=== PATIENT | female | born 1965 | race African-American/Black ===

== ENCOUNTER 2018-05-10 10:32 | Emergency (ER) | payer OTHER ==
[2018-05-10] MEDS ORDERED: Al Hydrox/Mg Hydrox/Simet LIQ* 30 ML UDC PO ONE (12:58)
--- NOTE | 2018-05-10 12:58 | ED ---
HPI Chest Pain - HPI Summary HPI Summary: This pt is a 53 y/o female, accompanied by son, presenting to [facility] via EMS for sudden onset of lower chest/upper abd pain today s/p taking antibiotic medication (Clindamycin) at the dentist. Pt reports she was at her dentist's office for dental pain and she was given an antibiotic pill to take, Clindamycin. She states 10 minutes after she took the antibiotic she had sudden onset of sharp, burning pain in her lower chest/upper abd area. She notes she was diaphoretic, with SOB, and vomiting. Pt states after emesis, pain markedly improved but still discomfort. PT was given ASA and NTG by EMS without change in symptoms. Pt reports her pain is worse with deep breaths, but is not SOB.no current nausea, vomiting. No cough. . . Additionally reports cough that is nonproductive. EMS administered nitroglycerin and aspirin [employer]. Pt denies SOB now , nausea, vomiting now, diarrhea. Denies sick contacts at home. PMHx: cardiac stent placed in [facility] (April 21, 2018), DM. Pt has not taken her Insulin today. Patient medication reviewed this visit. - History of Current Complaint Chief Complaint: EDAbdPain Time Seen by Provider: 05/10/18 12:34 Hx Obtained From: Patient Onset/Duration: Started Hours Ago, Still Present Timing: Lasting Hours Current Severity: Moderate Pain Intensity: 7 Pain Scale Used: 0-10 Numeric Chest Pain Location: Lower Sternal Chest Pain Radiates: No Aggravating Factor(s): Deep Breaths Alleviating Factor(s): Nothing Associated Signs and Symptoms: Positive: Chest Pain, Shortness of Breath, Diaphoresis, Nausea, Cough, Vomiting - Allergy/Home Medications Allergies/Adverse Reactions: Allergies Allergy/AdvReac Type Severity Reaction Status Date / Time No Known Allergies Allergy Verified 12/23/16 21:21 Home Medications: Home Medications Albuterol HFA INHALER* [Ventolin HFA Inhaler*] 1 - 2 puff INH .Q4-6H PRN [History Confirmed 05/10/18] Albuterol/Ipratropium RESP(NF) [Combivent Respimat(NF)] 1 puff INH QID 05/10/18 [History Confirmed 05/10/18] Aspirin 81 mg CHEW TAB* [Aspirin Low Dose TAB*] 81 mg PO DAILY 05/10/18 [ History Confirmed 05/10/18] Atorvastatin* [Lipitor*] 80 mg PO DAILY WITH MEAL 05/10/18 [History Confirmed ] Chlorthalidone 12.5 mg PO DAILY 05/10/18 [History Confirmed 05/10/18] Clopidogrel TAB* [Plavix TAB*] 75 mg PO DAILY 05/10/18 [History Confirmed ] Cyclobenzaprine (NF) [Cyclobenzaprine 5 MG (NF)] 5 mg PO TID PRN 05/10/18 [ History Confirmed 05/10/18] DULoxetine DR CAP* [Cymbalta CAP*] 120 mg PO DAILY 05/10/18 [History Confirmed 05/10/18] Gabapentin CAP(*) [Neurontin 400 mg CAP(*)] 400 mg PO TID 05/10/18 [History Confirmed 05/10/18] Insulin Glargine,Hum.rec.anlog [Jose Pierre] 12 units SUBCUT BEDTIME [History Confirmed 05/10/18] Lisinopril 40 mg PO DAILY 05/10/18 [History Confirmed 05/10/18] Metoprolol Tartrate TAB* [Lopressor TAB*] 100 mg PO BID 05/10/18 [History Confirmed 05/10/18] Nitroglycerin TAB 0.4 MG* 0.4 mg SL Q5M PRN 05/10/18 [History Confirmed 05/10/18 ] Pantoprazole TAB * [Protonix TAB*] 40 mg PO DAILY 05/10/18 [History Confirmed ] Quetiapine Fumarate [Seroquel 400 MG] 800 mg PO QPM 05/10/18 [History Confirmed 05/10/18] SitaGLIPtin (NF) [Januvia (NF)] 100 mg PO DAILY 05/10/18 [History Confirmed ] amLODIPine TAB* [Norvasc 5 mg TAB*] 5 mg PO DAILY 05/10/18 [History Confirmed ] glipiZIDE TAB* [Glucotrol TAB*] 5 mg PO BID 05/10/18 [History Confirmed 05/10/18 ] hydrOXYzine HCL TAB* [Atarax 25 MG TAB*] 25 mg PO QAM 05/10/18 [History Confirmed 05/10/18] metroNIDAZOLE [Metrogel] 1 % TOPICAL DAILY 05/10/18 [History Confirmed 05/10/18] PMH/Surg Hx/FS Hx/Imm Hx Previously Healthy: Yes Endocrine/Hematology History: Reports: Hx Anticoagulant Therapy - + plavix, Hx Diabetes Denies: Hx Systemic Lupus Erythematosus, Hx Thyroid Disease Cardiovascular History: Reports: Hx Angina, Hx Hypercholesterolemia, Hx Hypertension Denies: Hx Congestive Heart Failure, Hx Pacemaker/ICD Comment Only: Other Cardiovascular Problems/Disorders - HIGH BLOOD PRESSURE Respiratory History: Denies: Hx Asthma, Hx Chronic Obstructive Pulmonary Disease (COPD) GI History: Denies: Other GI Disorders History: Denies: Hx Dialysis, Hx Renal Disease Musculoskeletal History: Reports: Hx Arthritis, Hx Back Problems, Hx Fibromyalgia, Other Musculoskeletal History - fibromyalgia, arthritis Denies: Hx Rheumatoid Arthritis Sensory History: Reports: Hx Contacts or Glasses Opthamlomology History: Reports: Hx Contacts or Glasses Neurological History: Reports: Hx Seizures, Other Neuro Impairments/Disorders - seizures, depression Denies: Hx Dementia Psychiatric History: Reports: Hx Anxiety, Hx Depression, Hx Community Mental Health Tx Denies: Hx Attention Deficit Hyperactivity Disorder, Hx Eating Disorder, Hx Bipolar Disorder, Hx of Violent Episodes Against Others, Hx Substance Abuse - Cancer History Hx Chemotherapy: No - Surgical History Surgery Procedure, Year, and Place: APPY. GALLBLADDER. ?IUD. Stent placed (03/11) Hx Anesthesia Reactions: No Infectious Disease History: No Infectious Disease History: Denies: Hx Hepatitis, Hx Human Immunodeficiency Virus (HIV), Traveled Outside the [place] in Last 30 Days - Family History Known Family History: Positive: Cardiac Disease, Diabetes Family History: strokes - Social History Occupation: Unemployed Lives: With Family Alcohol Use: None Hx Substance Use: Yes Substance Use Type: Reports: Marijuana Hx Tobacco Use: Yes Smoking Status (MU): Current Every Day Smoker Type: eCigarettes Have You Smoked in the Last Year: Yes Review of Systems Constitutional: Negative Positive: Skin Diaphoresis - resolved with vomiting. Negative: Fever Positive: Dental Pain Positive: Chest Pain Positive: Shortness Of Breath - has resolved, Cough Positive: Vomiting, Nausea. Negative: Diarrhea All Other Systems Reviewed And Are Negative: Yes Physical Exam - Summary Physical Exam Summary: Vital Signs Reviewed: Yes A+Ox3, no distress Eyes: Conjunctiva Clear, CLAUDIO. EOM intact and full ENT: Hearing grossly normal TM x 2 clear, mmoist, uvula midline, no exudate, no erythema Neck: Positive: Supple Respiratory: Positive: No respiratory distress, No accessory muscle use + CTA throughout no w/r. no cough, speaking full easy sentences Cardiovascular: RRR nl s1, s2 no m/r CBT <2 sec no bruits. no edema abd soft + TTP epigastric area, no guarding, no rebound soft + BS Musculoskeletal Exam: GRANADOS x 4 without difficulty Strength Intact, ROM Intact Neurological: Positive: Alert, + sensation throughout Psychological: Positive: Normal Response To Family Skin: Positive: no rash, no ecchymosis Vital Signs On Initial Exam: Initial Vitals Temp Pulse Resp BP Pulse Ox 98.0 F 77 18 127/82 98 05/10/18 10:37 05/10/18 10:37 05/10/18 10:37 05/10/18 10:37 05/10/18 10:37 Diagnostics - Vital Signs Vital Signs Temp Pulse Resp BP Pulse Ox 05/10/18 12:09 19 134/90 05/10/18 12:00 22 05/10/18 11:39 23 120/83 05/10/18 11:09 25 140/85 05/10/18 11:00 25 05/10/18 10:39 75 14 127/82 100 05/10/18 10:38 79 100 05/10/18 10:37 98.0 F 77 18 127/82 98 - Laboratory Result Diagrams: 05/10/18 12:23 05/10/18 13:05 Lab Statement: Any lab studies that have been ordered have been reviewed, and results considered in the medical decision making process. - Radiology Chest XR Radiology Interpretation Completed By: Radiologist Summary of Radiographic Findings: IMPRESSION: No active cardiopulmonary disease. Dr. Barahona has reviewed this report. - CT CTA Chest CT Interpretation Completed By: Radiologist Summary of CT Findings: IMPRESSION: No pulmonary embolus is noted. No evidence of aortic dissection is noted. Dr. Barahona has reviewed this report. - EKG 12:39 Cardiac Rate: NL - at 77 bpm EKG Rhythm: Sinus Rhythm EKG Comparison: No Significant Change - No acute changes compard to prior on 2013. Re-Evaluation - Re-Evaluation First Eval Re-Evaluation Time: 13:58 Comment: Reviewed elevated D-dimer level with pt. Will order CTA. first trop 0 - will recheck 4 hour. Pt states mild improvement with Maalox - requesting narcotic - explained to pt narcotic not appropriate tx for likely gastric irritation. Will give APAP and bland po. Pt took her Protonix today Third Eval Re-Evaluation Time: 16:59 Comment: Second troponin is negative. CTA is negative. Discussed negative results with pt. Reviewed discharge plan with pt. Second Eval Re-Evaluation Time: 14:51 Comment: Ordered magnesium sulfate because it's low. Second troponin is pending. anticipate dicharge if neg - pt comfortable wiht plan. Chest Pain Course/Dx - Course Course Of Treatment: Pt presents to following epigastric lower chest pain starting 10 min after taking clindamycin at dental office. Pt states developed burning pain, sob, nausea. Pt with episode of vomiting which markedly improved sx. Pt states continues with epigastric discomfort. Pt was given nitro and ASA by EMS without improvement. Pt does have GERD - take protonix. No cough. VSS. EKG reviewed - no acute STEMI. Pain reproducible in epigastric area. heart and lung exam unremarkable. Will check labs including trop. D dimer. CXR. Maalox. tele. close reassessment - Diagnoses Provider Diagnoses: Epigastric abdominal pain - Provider Notifications Discussed Care Of Patient With: Dentist Instructed by Provider To: Other - Dentist office reports pt received Clindamycin. Discharge - Sign-Out/Discharge Documenting (check all that apply): Patient Departure - Discharge home Patient Received Moderate/Deep Sedation with Procedure: No - Discharge Plan Condition: Stable Disposition: HOME Patient Education Materials: Epigastric Pain (ED) Referrals: Orion Beck MD [Primary Care Provider] - Additional Instructions: - Stay well hydrated - drink plenty of non-alcoholic, non-caffinated beverages - Eat small, frequent meals - avoid spicy foods, acidic foods, fried foods, tomato based food - Okay to take Tums or Maalox burning pain - Continue to take Protonix as previous Contact your doctor to schedule a follow-up appointment - Billing Disposition and Condition Condition: STABLE Disposition: Home - Attestation Statements Document Initiated by Scribe: Yes Documenting Scribe: Tamela Martinez Provider For Whom Scribe is Documenting (Include Credential): Soledad Barahona MD Scribe Attestation: I, Tamela Martinez, scribed for Soledad Barahona MD on 05/12/18 at 205. Scribe Documentation Reviewed: Yes Provider Attestation: The documentation as recorded by the scribe, Tamela Martinez accurately reflects the service I personally performed and the decisions made by me, Soledad Barahona MD Status of Scribe Document: Viewed
[2018-05-10 13:47] LABS: CKMB ng/mL 0.9 ng/mL (0.6-6.3)
[2018-05-10] MEDS ORDERED: Acetaminophen TAB* 325 MG PO ONE (14:00)
[2018-05-10] MEDS ORDERED: Iodixanol* (CONTRAST) 320 MG/ML 100 ML SDV IV ONE (14:08)
[2018-05-10 14:13] LABS: ABS Basophils 0 10^3/ul (0-0.2); ABS Eosinophils 0.1 10^3/ul (0-0.6); ABS Lymphocytes 1.3 10^3/ul (1.0-4.8); ABS Monocytes 0.8 10^3/ul (0-0.8); ABS Neutrophils 7.8 10^3/ul (1.5-7.7); ABS Nucleated RBC 0 10^3/ul; Eosinophil % 1.3 %; Hematocrit 39 % (33-41); Hemoglobin 13.7 g/dL (12.0-16.0); Lymphocyte % 12.8 %; Mean Corpuscular HGB Conc 35 g/dL (31-36); Mean Corpuscular Hemoglobin 30 pg (27-31); Mean Corpuscular Volume 86 fL (80-97); Mean Platelet Volume 7.8 fL (7.4-10.4); Nucleated Red Blood Cells % 0; Platelet Count 340 10^3/uL (150-450); Red Cell Distribution Width 13 % (10.5-15)
[2018-05-10 14:25] LABS: Albumin 4.2 g/dL (3.2-5.2); Albumin/Globulin Ratio 1.6 (1-3); BUN/Creatinine Ratio 31.7 (8-20); Calcium 9.5 mg/dL (8.6-10.3); Globulin 2.7 g/dL (2-4); Magnesium 1.5 mg/dL (1.9-2.7); Total Bilirubin 0.3 mg/dL (0.2-1.0); Total Protein 6.9 g/dL (6.4-8.9)
[2018-05-10] MEDS ORDERED: Magnesium Sulfate 2 GM IV* 2 GM/50 ML BAG IVPB ONE (14:44)
[2018-05-10 16:24] VITALS: BP 119/58
== END 2018-05-10 16:23 | disposition home or self-care (01) ==
LOC: ED 10:32
DX: R10.13 Epigastric pain (principal); R06.02 Shortness of breath; R61 Generalized hyperhidrosis; R11.2 Nausea with vomiting, unspecified; R05 Cough; E11.9 Type 2 diabetes mellitus without complications; Z79.4 Long term (current) use of insulin; Z79.84 Long term (current) use of oral hypoglycemic drugs; Z79.01 Long term (current) use of anticoagulants; I10 Essential (primary) hypertension; Z90.89 Acquired absence of other organs; Z90.49 Acquired absence of other specified parts of digestive tract; Z82.49 Family history of ischemic heart disease and other diseases of the circulatory system; Z83.3 Family history of diabetes mellitus; F17.290 Nicotine dependence, other tobacco product, uncomplicated
CPT/HCPCS: 36415; 71046; 71275; 80053; 82553; 83605; 83690; 83735; 84484; 85025; 85379; 93005; 96365; 99284; A9270-GY; J3475; Q9967

== ENCOUNTER 2019-03-20 21:22 | Emergency (ER) | payer OTHER ==
--- NOTE | 2019-03-20 21:42 | ED ---
HPI Chest Pain - HPI Summary HPI Summary: Patient brought by EMS for sudden onset chest pain radiating to left shoulder with associated mild SOB. Nausea and vomiting 2. Patient has history of chronic chest pain radiating to left shoulder. History of cardiac stents April 2018. Patient takes nitroglycerin for chest pain, states she took 2 nitroglycerin this evening with no relief. States she has chronic chest pain radiating to left shoulder at night when she goes to bed, no symptoms during the day. Last check up with cardiology in October 2018. Patient on Plavix. Also complains of left shoulder pain persistent 1 week. Denies traumatic event. Denies fever, cough, sore throat, abdominal pain, change in urine, change in BM. Medical history is DM, HTN, HDL, CAD. - History of Current Complaint Chief Complaint: EDChestPainROMI Time Seen by Provider: 03/20/19 21:36 Hx Obtained From: Patient, Family/Social Service Manager Onset/Duration: Started Hours Ago Timing: Constant Initial Severity: Moderate Current Severity: Moderate Pain Intensity: 6 Pain Scale Used: 0-10 Numeric Chest Pain Location: Left Anterior Chest Pain Radiates: Yes Chest Pain Radiates To:: Shoulder Character: Tightness Aggravating Factor(s): Nothing Alleviating Factor(s): Nothing Associated Signs and Symptoms: Positive: Chest Pain, Shortness of Breath - Allergy/Home Medications Allergies/Adverse Reactions: Allergies Allergy/AdvReac Type Severity Reaction Status Date / Time No Known Allergies Allergy Verified 03/20/19 21:31 Home Medications: Home Medications metroNIDAZOLE [Noritate] 1 % TOPICAL BID PRN 03/20/19 [History Confirmed ] PMH/Surg Hx/FS Hx/Imm Hx Endocrine/Hematology History: Reports: Hx Anticoagulant Therapy - + plavix, Hx Diabetes Denies: Hx Systemic Lupus Erythematosus, Hx Thyroid Disease Cardiovascular History: Reports: Hx Angina, Hx Hypercholesterolemia, Hx Hypertension Denies: Hx Congestive Heart Failure, Hx Pacemaker/ICD Comment Only: Other Cardiovascular Problems/Disorders - HIGH BLOOD PRESSURE Respiratory History: Denies: Hx Asthma, Hx Chronic Obstructive Pulmonary Disease (COPD) GI History: Denies: Other GI Disorders History: Denies: Hx Dialysis, Hx Renal Disease Musculoskeletal History: Reports: Hx Arthritis, Hx Back Problems, Hx Fibromyalgia, Other Musculoskeletal History - fibromyalgia, arthritis Denies: Hx Rheumatoid Arthritis Sensory History: Reports: Hx Contacts or Glasses Opthamlomology History: Reports: Hx Contacts or Glasses EENT History: Denies: Hx Deafness Neurological History: Reports: Hx Seizures, Other Neuro Impairments/Disorders - seizures, depression Denies: Hx Dementia Psychiatric History: Reports: Hx Anxiety, Hx Depression, Hx Community Mental Health Tx Denies: Hx Attention Deficit Hyperactivity Disorder, Hx Eating Disorder, Hx Bipolar Disorder, Hx of Violent Episodes Against Others, Hx Substance Abuse - Cancer History Hx Chemotherapy: No - Surgical History Surgery Procedure, Year, and Place: APPY. GALLBLADDER. IUD. Stent placed (03/11) Hx Anesthesia Reactions: No Infectious Disease History: No Infectious Disease History: Denies: Hx Hepatitis, Hx Human Immunodeficiency Virus (HIV), Traveled Outside the [place] in Last 30 Days - Family History Known Family History: Positive: Cardiac Disease, Diabetes Family History: strokes - Social History Alcohol Use: None Hx Substance Use: Yes Substance Use Type: Reports: Marijuana Substance Use Comment - Amount & Last Used: last used this morning Hx Tobacco Use: Yes Smoking Status (MU): Light Every Day Tobacco Smoker Type: eCigarettes Have You Smoked in the Last Year: Yes Review of Systems Constitutional: Negative Eyes: Negative ENT: Negative Positive: Chest Pain Positive: Shortness Of Breath Gastrointestinal: Negative Genitourinary: Negative Musculoskeletal: Other Skin: Negative Neurological: Negative Psychological: Normal All Other Systems Reviewed And Are Negative: Yes Physical Exam - Summary Physical Exam Summary: Normal range of motion of left shoulder with some mild pain. No pain with palpation of left shoulder. Chest pain reproducible over left-sided chest. Lung sounds clear to auscultation bilaterally. RRR. Triage Information Reviewed: Yes Vital Signs On Initial Exam: Initial Vitals Temp Pulse Resp BP Pulse Ox 97.8 F 102 12 105/58 98 03/20/19 21:26 03/20/19 21:26 03/20/19 21:26 03/20/19 21:26 03/20/19 21:26 Vital Signs Reviewed: Yes Appearance: Positive: Well-Appearing Skin: Positive: Warm Head/Face: Positive: Normal Head/Face Inspection Eyes: Positive: Normal Neck: Positive: Supple Respiratory/Lung Sounds: Positive: Clear to Auscultation Cardiovascular: Positive: Normal Abdomen Description: Positive: Nontender Musculoskeletal: Positive: Normal Neurological: Positive: Normal Psychiatric: Positive: Normal AVPU Assessment: Alert - [place] Coma Scale Best Eye Response: 4 - Spontaneous Best Motor Response: 6 - Obeys Commands Best Verbal Response: 5 - Oriented Coma Scale Total: 15 Procedures - Sedation Patient Received Moderate/Deep Sedation with Procedure: No Diagnostics - Vital Signs Vital Signs Temp Pulse Resp BP Pulse Ox 03/20/19 21:32 97 29 97 03/20/19 21:29 101 20 105/58 98 03/20/19 21:26 97.8 F 102 12 105/58 98 - Laboratory Result Diagrams: 03/20/19 21:54 03/20/19 21:54 Lab Statement: Any lab studies that have been ordered have been reviewed, and results considered in the medical decision making process. Chest Pain Course/Dx - Course Course Of Treatment: Patient brought by EMS for sudden onset chest pain radiating to left shoulder with associated mild SOB. Nausea and vomiting 2. Patient has history of chronic chest pain radiating to left shoulder. History of cardiac stents April 2018. Patient takes nitroglycerin for chest pain, states she took 2 nitroglycerin this evening with no relief. States she has chronic chest pain radiating to left shoulder at night when she goes to bed, no symptoms during the day. Last check up with cardiology in October 2018. Patient on Plavix. Also complains of left shoulder pain persistent 1 week. Denies traumatic event. Denies fever, cough, sore throat, abdominal pain, change in urine, change in BM. Medical history is DM, HTN, HDL, CAD. Mildly tachycardic. Vital signs otherwise within normal limits. Potassium 3.2. Potassium 40 MEQ by mouth administered. Labs otherwise unremarkable. Serial troponins negative. EKG sinus tachycardia with heart rate of 101, same as prior. X-ray of left shoulder negative. Chest x-ray negative. Left shoulder and chest pain resolved with oxycodone 5 mg. Heart score 3. - Diagnoses Provider Diagnoses: Chest pain, Left shoulder pain Discharge ED - Sign-Out/Discharge Documenting (check all that apply): Patient Departure - Discharge Plan Condition: Stable Disposition: HOME Patient Education Materials: Chest Pain (ED), Shoulder Pain (ED) Referrals: Orion Beck MD [Primary Care Provider] - Additional Instructions: Follow-up with your remedial reading teacher in [place] for recurrent chronic chest pain. Follow-up with orthopedics Dr. Marsh for further evaluation of left shoulder pain. Take Tylenol for chest pain and left shoulder pain. Return to the ED for any new or worsening symptoms. - Billing Disposition and Condition Condition: STABLE Disposition: Home
[2019-03-20 22:07] LABS: ABS Basophils 0.1 10^3/ul (0-0.2); ABS Eosinophils 0.2 10^3/ul (0-0.6); ABS Lymphocytes 1.5 10^3/ul (1.0-4.8); ABS Monocytes 0.6 10^3/ul (0-0.8); ABS Neutrophils 3.7 10^3/ul (1.5-7.7); Eosinophil % 2.8 %; Hematocrit 32 % (35-47); Hemoglobin 11.7 g/dL (12.0-16.0); Lymphocyte % 24.3 %; Mean Corpuscular HGB Conc 36 g/dL (31-36); Mean Corpuscular Hemoglobin 31 pg (27-31); Mean Corpuscular Volume 86 fL (80-97); Mean Platelet Volume 7.8 fL (7.4-10.4); Platelet Count 291 10^3/uL (150-450); Red Blood Count 3.77 10^6 /uL (3.70-4.87); Red Cell Distribution Width 14 % (10-15)
[2019-03-20 22:18] LABS: Albumin 3.6 g/dL (3.2-5.2); Albumin/Globulin Ratio 1.5 (1-3); BUN/Creatinine Ratio 19.5 (8-20); C Reactive Protein 6.1 mg/L (<8.01); Calcium 8.5 mg/dL (8.6-10.3); EGFR African American 88.6 (>60); EGFR Non-African American 73.2 (>60); Globulin 2.4 g/dL (2-4); Potassium 3.2 mmol/L (3.5-5.0); Total Bilirubin 0.2 mg/dL (0.2-1.0)
[2019-03-20 22:20] LABS: Troponin I 0.01 ng/mL (<0.03)
[2019-03-20] MEDS ORDERED: oxyCODONE TAB* 5 MG TAB PO ONE (22:22)
[2019-03-20] MEDS ORDERED: Potassium Chlor TAB* 20 MEQ TAB.ER PO ONE (22:22)
[2019-03-20 22:57] LABS: TSH (Thyroid Stimulating Horm) 4.97 mcIU/mL (0.34-5.60)
[2019-03-21 01:38] VITALS: BP 120/74
== END 2019-03-21 01:38 | disposition home or self-care (01) ==
LOC: ED 21:22
DX: R07.9 Chest pain, unspecified (principal); M25.512 Pain in left shoulder; F17.210 Nicotine dependence, cigarettes, uncomplicated; F41.9 Anxiety disorder, unspecified; F32.9 Major depressive disorder, single episode, unspecified; I10 Essential (primary) hypertension; E11.9 Type 2 diabetes mellitus without complications; E78.00 Pure hypercholesterolemia, unspecified; Z79.01 Long term (current) use of anticoagulants; Z79.899 Other long term (current) drug therapy
CPT/HCPCS: 36415; 71045; 80053; 83690; 83880; 84443; 84484; 85025; 86140; 93005; 99284; A9270-GY

== ENCOUNTER 2021-02-27 04:02 | Observation (INO) ==
[2021-02-27 04:24] LABS: ABS Basophils 0.1 10^3/ul (0-0.2); ABS Eosinophils 0.2 10^3/ul (0-0.6); ABS Lymphocytes 1.8 10^3/ul (1.0-4.8); ABS Monocytes 0.6 10^3/ul (0-0.8); ABS Neutrophils 3.3 10^3/ul (1.5-7.7); Eosinophil % 2.7 %; Hematocrit 35 % (35-47); Hemoglobin 11.9 g/dL (12.0-16.0); Lymphocyte % 30.3 %; Mean Corpuscular HGB Conc 34 g/dL (31-36); Mean Corpuscular Hemoglobin 29 pg (27-31); Mean Corpuscular Volume 85 fL (80-97); Mean Platelet Volume 7.1 fL (7.4-10.4); Nucleated Red Blood Cells % 0.2; Platelet Count 363 10^3/uL (150-450); Red Blood Count 4.14 10^6 /uL (3.70-4.87); Red Cell Distribution Width 15 % (10-15); White Blood Count 5.8 10^3/uL (3.5-10.8)
[2021-02-27 04:38] LABS: Activated Partial Thrombo Time 32.5 seconds (26.0-38.0); INR 1.02 (0.86-1.15)
[2021-02-27 04:43] LABS: Albumin 4.2 g/dL (3.2-5.2); Albumin/Globulin Ratio 1.6 (1-3); Calcium 9.3 mg/dL (8.6-10.3); Globulin 2.6 g/dL (2-4); Magnesium 1.9 mg/dL (1.9-2.7); Potassium 3.6 mmol/L (3.5-5.0); Total Bilirubin 0.3 mg/dL (0.2-1.0); Total Protein 6.8 g/dL (6.4-8.9); eGFR CKD-EPI 88.8 (>60)
[2021-02-27 05:08] LABS: TSH Ultra Thyroid Stim Horm 4.94 mcIU/mL (0.34-5.60)
[2021-02-27] MEDS ORDERED: Iodixanol (CONTRAST) 320 MG/ML 100 ML SDV IV ONE (06:32)
[2021-02-27] MEDS ORDERED: NS 0.9% 1000 ml BAG 1,000 ML IV ONE (08:10)
[2021-02-27] MEDS ORDERED: Nitroglycerin 0.4 mg/hr PATCH (10 mg) TRANSDERM ONE (08:16)
[2021-02-27] MEDS ORDERED: Dextrose 50% Syringe 50 ml 25 GM/50 ML SYRINGE IV PUSH PRN (08:42)
[2021-02-27] MEDS ORDERED: Ondansetron 4 mg VIAL 2 MG/ML 2 ml VIAL IV PRN (08:43)
[2021-02-27] MEDS ORDERED: Insulin GLARGINE 100 un/ml 10 ml VIAL SUBCUT SCH (09:00)
[2021-02-27] MEDS ORDERED: DULoxetine DR 60 mg CAP PO SCH (10:00)
[2021-02-27] MEDS ORDERED: Regadenoson 0.4 MG/5 ML SYRINGE ONE (12:14)
[2021-02-27] MEDS ORDERED: Aminophylline 25 MG/ML VIAL ONE (12:18)
[2021-02-27 16:45] VITALS: BP 134/90
[2021-02-27] MEDS ORDERED: Nitro Patch Removal Reminder PATCH OFF ONE (21:00)
[2021-02-28] MEDS ORDERED: Aspirin EC 81 mg TAB.EC (enteric coated) PO SCH (09:00)
[2021-02-28] MEDS ORDERED: Cholecalciferol (VIT D3) 1,000 unit TAB PO SCH (09:00)
[2021-02-28] MEDS ORDERED: [UNRECOGNIZED DRUG - OTHER] PO SCH (09:00)
== END 2021-02-27 16:44 | disposition home or self-care (01) ==
LOC: EDHOLD 04:02 → ED 04:02 → EDHOLD 16:44
PROVIDERS: ADMIT Internal Medicine; ATTEND Internal Medicine

== ENCOUNTER 2023-10-22 17:05 | Inpatient (IN) ==
[2023-10-22] MEDS: Acetaminophen IV 1 GM/100ML 1,000 MG/100 ML BAG IV ONE (21:42)
[2023-10-22] MEDS: Dexamethasone IV 4 MG/ML VIAL 1 ml VIAL IV SLOW PU ONE (21:42)
[2023-10-22 21:58] LABS: ABS Basophils 0.1 10^3/uL (0.0-0.1); ABS Eosinophils 0.1 10^3/uL (0.0-0.5); ABS Lymphocytes 2.8 10^3/uL (1.0-4.8); ABS Monocytes 0.7 10^3/uL (0.0-0.9); ABS Neutrophils 3.5 10^3/uL (1.5-7.6); Hematocrit 39.6 % (35-45); Mean Corpuscular Hemoglobin 30.7 pg (27-33); Mean Corpuscular Hgb Conc 35.3 g/dL (31-36); Mean Corpuscular Volume 87.1 fL (80-97); Mean Platelet Volume 7.6 fL (7.5-11.2); Platelet Count 399 10^3/uL (150-450); Red Blood Count 4.55 10^6/uL (3.63-4.92); Red Cell Distribution Width 12.8 % (12-17); White Blood Count 7.1 10^3/uL (3.8-11.8)
[2023-10-22 22:36] LABS: Calcium 10.3 mg/dL (8.6-10.3); Creatinine, Serum 0.88 mg/dL (0.51-0.95); eGFR CKD-EPI 76.6 (>60)
[2023-10-22] MEDS: Lidocaine PATCH 5% PATCH TRANSDERM ONE (23:03)
[2023-10-23] MEDS: Morphine 4 MG/ML VIAL (1 ml) IV ONE (01:23)
[2023-10-23] MEDS: HYDROmorphone 1 MG/1 ML SYRINGE IV ONE (03:29)
[2023-10-23] MEDS ORDERED: Nicotine GUM 4MG FRUIT FLAVOR PO PRN (05:16)
[2023-10-23] MEDS: HYDROmorphone 1 MG/1 ML SYRINGE IV SLOW PU PRN (07:42)
[2023-10-23] MEDS: Insulin GLARGINE 100 un/ml 10 ml VIAL SUBCUT SCH (08:49)
[2023-10-23] MEDS: Aspirin EC 81 mg TAB.EC (enteric coated) PO SCH (08:53)
[2023-10-23] MEDS: Lactated Ringers 1000 ml BAG 1,000 ML IV ONE (08:53)
[2023-10-23] MEDS: Nicotine PATCH 21 MG/24 HR PATCH TRANSDERM SCH (10:56)
[2023-10-23] MEDS: DULoxetine DR 60 mg CAP PO SCH (10:56)
[2023-10-23 11:14] LABS: Calcium 9.7 mg/dL (8.6-10.3); Creatinine, Serum 0.77 mg/dL (0.51-0.95); Potassium 4.5 mmol/L (3.5-5.0); eGFR CKD-EPI 89.9 (>60)
[2023-10-23] MEDS: Acetaminophen IV 1 GM/100ML 1,000 MG/100 ML BAG IV SCH (11:43)
[2023-10-23] MEDS: NS 0.9% 1000 ml BAG 1,000 ML IV SCH (11:46)
[2023-10-23 17:12] LABS: Albumin 4.2 g/dL (3.2-5.2); Albumin/Globulin Ratio 1.6 (1-3); Calcium 9.8 mg/dL (8.6-10.3); Creatinine, Serum 0.75 mg/dL (0.51-0.95); Globulin 2.6 g/dL (2-4); Potassium 4.4 mmol/L (3.5-5.0); Total Bilirubin 0.4 mg/dL (0.2-1.0); Total Protein 6.8 g/dL (6.4-8.9); eGFR CKD-EPI 92.8 (>60)
[2023-10-23] MEDS ORDERED: Nicotine Lozenge mini 2 MG LOZNG.MINI MT PRN (20:31)
[2023-10-24 05:58] LABS: ABS Eosinophils 0.2 10^3/uL (0.0-0.5); ABS Lymphocytes 2.7 10^3/uL (1.0-4.8); ABS Monocytes 0.5 10^3/uL (0.0-0.9); ABS Neutrophils 2.4 10^3/uL (1.5-7.6); Eosinophil % 3.4 %; Hematocrit 36.1 % (35-45); Hemoglobin 12.3 g/dL (11.5-14.3); Lymphocyte % 46.2 %; Mean Corpuscular Hemoglobin 29.8 pg (27-33); Mean Corpuscular Hgb Conc 33.9 g/dL (31-36); Mean Corpuscular Volume 87.8 fL (80-97); Mean Platelet Volume 7.7 fL (7.5-11.2); Platelet Count 345 10^3/uL (150-450); Red Blood Count 4.12 10^6/uL (3.63-4.92); White Blood Count 5.8 10^3/uL (3.8-11.8)
[2023-10-24 06:16] LABS: Albumin 3.7 g/dL (3.2-5.2); Albumin/Globulin Ratio 1.5 (1-3); Calcium 9.1 mg/dL (8.6-10.3); Creatinine, Serum 0.89 mg/dL (0.51-0.95); Globulin 2.5 g/dL (2-4); Potassium 3.9 mmol/L (3.5-5.0); Total Bilirubin 0.3 mg/dL (0.2-1.0); Total Protein 6.2 g/dL (6.4-8.9); eGFR CKD-EPI 75.6 (>60)
[2023-10-24] MEDS: Lidocaine PATCH 5% PATCH TRANSDERM SCH (08:19)
[2023-10-24 08:40] LABS: Magnesium 1.7 mg/dL (1.9-2.7)
[2023-10-24] MEDS: Insulin GLARGINE 100 un/ml 10 ml VIAL SUBCUT SCH (08:41)
[2023-10-24] MEDS: Magnesium Sulfate 2 gm BAG 2 GM/50 ML BAG IVPB ONE (10:17)
[2023-10-24] MEDS ORDERED: Dextrose 50% Syringe 50 ml 25 GM/50 ML SYRINGE IV PUSH PRN (16:28)
[2023-10-25 09:16] LABS: Calcium 9.3 mg/dL (8.6-10.3); Creatinine, Serum 0.62 mg/dL (0.51-0.95); Magnesium 1.7 mg/dL (1.9-2.7); eGFR CKD-EPI 103.8 (>60)
[2023-10-25] MEDS: Magnesium Sulfate 2 gm BAG 2 GM/50 ML BAG IVPB ONE (17:38)
[2023-10-25] MEDS: Senna TAB 8.6 mg TAB PO SCH (21:07)
[2023-10-26] MEDS ORDERED: Calcium Carb (TUMS) 500 mg CHEW TAB PO PRN (04:02)
[2023-10-26] MEDS: Magnesium Hydroxide LIQ 30 ML UDC PO PRN (09:25)
[2023-10-26] MEDS: Polyethylene Glycol 3350 17 GM PACKET PO PRN (12:36)
[2023-10-26] MEDS: Enoxaparin 40 MG/0.4 ML SYR SUBCUT SCH (14:13)
[2023-10-27 20:59] LABS: High Sensitivity Troponin 1 Hr 6 pg/mL (<15)
[2023-10-27] MEDS: Senna TAB 8.6 mg TAB PO PRN (23:48)
[2023-10-28 07:37] LABS: Calcium 9.4 mg/dL (8.6-10.3); Creatinine, Serum 1.08 mg/dL (0.51-0.95); Magnesium 2.1 mg/dL (1.9-2.7); Potassium 4.3 mmol/L (3.5-5.0); eGFR CKD-EPI 59.9 (>60)
[2023-10-28] MEDS: Morphine 2 MG/ML SYRINGE IV PRN ×2 (07:54→21:56)
[2023-10-29] MEDS: Glycerin ADULT 2.4 gm SUPP PR ONE (15:56)
[2023-10-30] MEDS: Sodium Phosphate ADULT ENEMA 133 ML BTL PR ONE ×2 (00:41→11:22)
[2023-10-30] MEDS: Ondansetron 4 mg VIAL 2 MG/ML 2 ml VIAL IV PRN (08:08)
[2023-10-30] MEDS: Magnesium Hydroxide LIQ 30 ML UDC PO SCH (09:15)
[2023-10-30] MEDS: Polyethylene Glycol 3350 17 GM PACKET PO SCH (09:15)
[2023-10-30] MEDS: Sodium Phosphate ADULT ENEMA 133 ML BTL PR PRN (09:17)
[2023-10-30 10:13] VITALS: BP 109/68
== END 2023-10-30 13:50 | disposition home or self-care (01) | DRG 99 ==
LOC: EDHOLD 17:05 → ED 17:05 → SSU 10-23 08:41 → SUATTDRO 10-25 16:30 → MED 10-27 23:08
PROVIDERS: ADMIT Hospitalist; ATTEND Student in an Organized Health Care Education/Training Program

== ENCOUNTER 2024-03-01 01:11 | Observation (INO) ==
[2024-03-01 01:36] LABS: ABS Eosinophils 0.2 10^3/uL (0.0-0.5); ABS Lymphocytes 1.7 10^3/uL (1.0-4.8); ABS Monocytes 0.5 10^3/uL (0.0-0.9); ABS Neutrophils 2.6 10^3/uL (1.5-7.6); Eosinophil % 4.3 %; Hematocrit 38.3 % (35-45); Hemoglobin 13.3 g/dL (11.5-14.3); Lymphocyte % 34.5 %; Mean Corpuscular Hemoglobin 29.1 pg (27-33); Mean Corpuscular Hgb Conc 34.8 g/dL (31-36); Mean Corpuscular Volume 83.6 fL (80-97); Mean Platelet Volume 7.8 fL (7.5-11.2); Nucleated Red Blood Cells % 0.1 %/100WBC (0.0-0.8); Platelet Count 311 10^3/uL (150-450); Red Blood Count 4.58 10^6/uL (3.63-4.92); Red Cell Distribution Width 13.5 % (12-17)
[2024-03-01 01:39] LABS: INR 1.14 (0.85-1.14)
[2024-03-01 02:49] LABS: Albumin 4.2 g/dL (3.5-5.7); Albumin/Globulin Ratio 1.7 (1-3); Calcium 9.5 mg/dL (8.6-10.3); Creatinine, Serum 0.85 mg/dL (0.51-0.95); Globulin 2.5 g/dL (2-4); Potassium 3.8 mmol/L (3.5-5.0); Total Bilirubin 0.4 mg/dL (0.2-1.0); Total Protein 6.7 g/dL (6.4-8.9); eGFR CKD-EPI 79.9 (>60)
[2024-03-01 03:03] LABS: High Sensitivity Troponin 1 Hr 28 pg/mL (<15)
[2024-03-01] MEDS: Heparin DRIP 25,000 UNITS BAG 25,000 UNITS/250 ML BAG IV SCH (03:35)
[2024-03-01] MEDS: Heparin 5000 UNITS/ML 1 mL VIAL IV SCH (03:35)
[2024-03-01 06:26] LABS: ABS Basophils 0.1 10^3/uL (0.0-0.1); ABS Eosinophils 0.2 10^3/uL (0.0-0.5); ABS Lymphocytes 2.2 10^3/uL (1.0-4.8); ABS Monocytes 0.6 10^3/uL (0.0-0.9); ABS Neutrophils 2.9 10^3/uL (1.5-7.6); ABS Nucleated RBC 0.01 10^3/ul; Eosinophil % 3.7 %; Hematocrit 37.1 % (35-45); Hemoglobin 12.9 g/dL (11.5-14.3); Lymphocyte % 36.8 %; Mean Corpuscular Hemoglobin 29.2 pg (27-33); Mean Corpuscular Hgb Conc 34.9 g/dL (31-36); Mean Corpuscular Volume 83.8 fL (80-97); Mean Platelet Volume 7.4 fL (7.5-11.2); Nucleated Red Blood Cells % 0.1 %/100WBC (0.0-0.8); Platelet Count 306 10^3/uL (150-450); Red Blood Count 4.43 10^6/uL (3.63-4.92); Red Cell Distribution Width 13.3 % (12-17)
[2024-03-01] MEDS ORDERED: Sulfur Hexaflouride MICROSPHR 25 MG VIAL IV PRN (06:38)
[2024-03-01] MEDS ORDERED: Dextrose 50% Syringe 50 ml 25 GM/50 ML SYRINGE IV PUSH PRN (06:41)
[2024-03-01 07:49] LABS: Calcium 9.6 mg/dL (8.6-10.3); Magnesium 1.9 mg/dL (1.9-2.7); Potassium 4.4 mmol/L (3.5-5.0); eGFR CKD-EPI 65.7 (>60)
[2024-03-01] MEDS: Morphine ER 15 mg TAB ** extended release PO SCH (08:30)
[2024-03-01] MEDS: Insulin GLARGINE 100 un/ml 10 ml VIAL SUBCUT SCH (08:36)
[2024-03-01] MEDS: DULoxetine DR 60 mg CAP PO SCH (10:02)
[2024-03-01] MEDS ORDERED: Naloxone Nasal Spray 4 MG/0.1 ML NASAL.SPR INTRANASAL PRN (10:33)
[2024-03-01 10:47] LABS: High Sensitivity Troponin 1 Hr 62 pg/mL (<15)
[2024-03-01 11:04] LABS: HDL Cholesterol 33.4 mg/dL
[2024-03-01] MEDS: Insulin GLARGINE 100 un/ml 10 ml VIAL SUBCUT ONE (12:32)
[2024-03-02 05:29] LABS: ABS Basophils 0.1 10^3/uL (0.0-0.1); ABS Eosinophils 0.3 10^3/uL (0.0-0.5); ABS Lymphocytes 2.4 10^3/uL (1.0-4.8); ABS Monocytes 0.6 10^3/uL (0.0-0.9); Eosinophil % 6.1 %; Hematocrit 37.7 % (35-45); Hemoglobin 13.2 g/dL (11.5-14.3); Mean Corpuscular Hemoglobin 29.4 pg (27-33); Mean Corpuscular Hgb Conc 35.1 g/dL (31-36); Mean Corpuscular Volume 83.8 fL (80-97); Mean Platelet Volume 7.8 fL (7.5-11.2); Platelet Count 340 10^3/uL (150-450); Red Cell Distribution Width 13.7 % (12-17); White Blood Count 5.5 10^3/uL (3.8-11.8)
[2024-03-02 05:58] LABS: Albumin 4.1 g/dL (3.5-5.7); Albumin/Globulin Ratio 1.8 (1-3); Calcium 9.7 mg/dL (8.6-10.3); Creatinine, Serum 1.03 mg/dL (0.51-0.95); Globulin 2.3 g/dL (2-4); Magnesium 1.8 mg/dL (1.9-2.7); Potassium 5.1 mmol/L (3.5-5.0); Total Bilirubin 0.3 mg/dL (0.2-1.0); Total Protein 6.4 g/dL (6.4-8.9); eGFR CKD-EPI 63.4 (>60)
[2024-03-02] MEDS: Magnesium Sulfate IV 1GM/100ML 1 GM/100 ML BAG IV ONE (11:22)
[2024-03-02] MEDS ORDERED: Aminophylline 25 MG/ML VIAL ONE (13:34)
[2024-03-02] MEDS ORDERED: Regadenoson 0.4 MG/5 ML SYRINGE ONE (13:34)
[2024-03-02] MEDS: Morphine ER 15 mg TAB ** extended release PO SCH (21:29)
[2024-03-02] MEDS: CMC:Ranolazine 500 mg TAB ER (NF) PO SCH (21:29)
[2024-03-02] MEDS: Senna TAB 8.6 mg TAB PO PRN (23:03)
[2024-03-03] MEDS: Calcium Carb (TUMS) 500 mg CHEW TAB PO ONE (03:11)
[2024-03-03 05:56] LABS: ABS Eosinophils 0.4 10^3/uL (0.0-0.5); ABS Lymphocytes 2.4 10^3/uL (1.0-4.8); ABS Monocytes 0.7 10^3/uL (0.0-0.9); ABS Neutrophils 2.1 10^3/uL (1.5-7.6); ABS Nucleated RBC 0.01 10^3/ul; Eosinophil % 6.4 %; Hematocrit 37.4 % (35-45); Lymphocyte % 42.5 %; Mean Corpuscular Hemoglobin 29.1 pg (27-33); Mean Corpuscular Hgb Conc 34.8 g/dL (31-36); Mean Corpuscular Volume 83.6 fL (80-97); Mean Platelet Volume 7.7 fL (7.5-11.2); Nucleated Red Blood Cells % 0.1 %/100WBC (0.0-0.8); Platelet Count 331 10^3/uL (150-450); Red Blood Count 4.48 10^6/uL (3.63-4.92); Red Cell Distribution Width 13.4 % (12-17); White Blood Count 5.6 10^3/uL (3.8-11.8)
[2024-03-03 06:16] LABS: Calcium 9.5 mg/dL (8.6-10.3); Creatinine, Serum 0.85 mg/dL (0.51-0.95); Magnesium 1.8 mg/dL (1.9-2.7); Potassium 4.5 mmol/L (3.5-5.0); eGFR CKD-EPI 79.9 (>60)
[2024-03-03] MEDS: Magnesium Sulfate 2 gm BAG 2 GM/50 ML BAG IVPB ONE (08:31)
[2024-03-03 09:46] LABS: C Reactive Protein 4.13 mg/L (<8.01); Uric Acid 5.5 mg/dL (2.3-6.6)
[2024-03-03 09:54] VITALS: BP 153/90
[2024-03-03 10:39] LABS: Erythrocyte Sed Rate 5 mm/Hr (0-29)
== END 2024-03-03 12:00 | disposition home or self-care (01) ==
LOC: ED 01:11 → EDHOLD 01:11 → SUATTDRO 03:58 → EDHOLD 11:31 → MEDTELE 14:49
PROVIDERS: ADMIT Internal Medicine; ATTEND Student in an Organized Health Care Education/Training Program